=== PATIENT | male | born 1995 | race Caucasian/White ===

== ENCOUNTER 2016-11-12 14:51 | Emergency (ER) | payer OTHER ==
[2016-11-12 14:57] VITALS: BP 141/86
[2016-11-12] MEDS ORDERED: Ibuprofen TAB* 600 MG PO ONE (15:11)
--- NOTE | 2016-11-12 15:47 | ED ---
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 Denies head injury, LOC. Medical staff at the event placed pt in a splint. Denies numbness, tingling, weakness as well as ZENDEJAS, visual change, nausea/vomiting, tinnitus, oral/dental pain, neck pain. Ice and rest have helped sx but also agrees to take an NSAID. Ate almost directly before injury. No previous injury to this knee however he has had 2 Rt knee surgeries in the past. - History of Current Complaint Hx Obtained From: Patient, Family/Partner Alliance Manager - mom, dad Pain Intensity: 3 <Christiane Bianchi - Last Filed: 11/15/16 19:47> <Brittany Thornton - Last Filed: 11/16/16 08:48> - History of Current Complaint Chief Complaint: EDExtremityLower Stated Complaint: KNEE INJURY Time Seen by Provider: 11/12/16 14:57 - Allergies/Home Medications Allergies/Adverse Reactions: Allergies Allergy/AdvReac Type Severity Reaction Status Date / Time No Known Allergies Allergy Verified 11/12/16 15:59 PMH/Surg Hx/FS Hx/Imm Hx Previously Healthy: Yes Endocrine/Hematology History: Denies: Hx Anticoagulant Therapy, Hx Blood Disorders Respiratory History: Denies: Hx Asthma Musculoskeletal History: Reports: Other Musculoskeletal History - Surgical History Surgery Procedure, Year, and Place: Rt knee surgery x 2 Infectious Disease History: No Infectious Disease History: Denies: Traveled Outside the [place] in Last 30 Days - Family History Known Family History: Positive: None - Social History Occupation: Student Lives: With Family - roommate <Christiane Bianchi - Last Filed: 11/15/16 19:47> Review of Systems Negative: Fatigue Eyes: Negative ENT: Negative Negative: Chest Pain Negative: Shortness Of Breath Gastrointestinal: Negative Positive: no symptoms reported Musculoskeletal: Other - see HPI Negative: Bruising Neurological: Negative Psychological: Normal All Other Systems Reviewed And Are Negative: Yes <Christiane Bianchi - Last Filed: 11/15/16 19:47> Physical Exam Triage Information Reviewed: Yes Vital Signs On Initial Exam: Initial Vitals Temp Pulse Resp BP Pulse Ox 98.8 F 84 18 141/86 100 11/12/16 14:54 11/12/16 14:54 11/12/16 14:54 11/12/16 14:54 11/12/16 14:54 Vital Signs Reviewed: Yes Appearance: Positive: Well-Appearing, No Pain Distress, Well-Nourished Skin: Positive: Warm, Dry - no erythema, no ecchymosis over affected area Head/Face: Positive: Normal Head/Face Inspection - NTTP, no battlesign, no racoon sign Eyes: Positive: Normal, EOMI, EDMUND - no photophobia, Conjunctiva Clear ENT: Positive: Hearing grossly normal, Pharynx normal - mucosa moist Dental: Negative: Dental Fracture @ Neck: Positive: Supple, Nontender Respiratory/Lung Sounds: Positive: Clear to Auscultation, Breath Sounds Present. Negative: Subcutaneous Emphysema, Tracheal Deviation Cardiovascular: Positive: Normal, RRR, Pulses are Symmetrical in both Upper and Lower Extremities Abdomen Description: Positive: Nontender, Soft Musculoskeletal: Positive: Pain @ - Rt knee w/ raiza edema - anterior knee w/ bogginess - patella mobile, NTTP, popliteal fossa NTTP; pain w/ 90degrees of flexion - can extend w/o difficulty (limited anterior/posterior drawer test); (- ) Nargis's, equivocal varus/valgus stress; (-) Gerhard Neurological: Positive: Normal, Sensory/Motor Intact, Alert, Oriented to Person Place, Time, CN Intact II-III Psychiatric: Positive: Normal <Christiane Bianchi - Last Filed: 11/15/16 19:47> Vital Signs On Initial Exam: Initial Vitals Temp Pulse Resp BP Pulse Ox 98.8 F 84 18 141/86 100 11/12/16 14:54 11/12/16 14:54 11/12/16 14:54 11/12/16 14:54 11/12/16 14:54 <Brittany Thornton - Last Filed: 11/16/16 08:48> Diagnostics - Vital Signs Vital Signs Temp Pulse Resp BP Pulse Ox 11/12/16 14:54 98.8 F 84 18 141/86 100 <Christiane Bianchi - Last Filed: 11/15/16 19:47> - Vital Signs Vital Signs Temp Pulse Resp BP Pulse Ox 11/12/16 14:54 98.8 F 84 18 141/86 100 <Brittany Thornton - Last Filed: 11/16/16 08:48> Lower Extremity Course/Dx <Christiane Bianchi - Last Filed: 11/15/16 19:47> <Brittany Thornton - Last Filed: 11/16/16 08:48> - Diagnoses Provider Diagnoses: KNEE SPRAIN Discharge <Christiane Bianchi - Last Filed: 11/15/16 19:47> <Brittany Thornton - Last Filed: 11/16/16 08:48> - Discharge Plan Condition: Stable Disposition: HOME Patient Education Materials: Knee Sprain (ED), Crutch Instructions (ED), Knee Immobilizer (ED) Forms: *Physical Education Release Referrals: ASHLEY Smith [Primary Care Provider] - Sneha Lewis MD [Medical Doctor] - Additional Instructions: Rest, ice, compress w/ immobilizer, elevate Ibuprofen 600mg every 6 hours with food Wear immobilizer until cleared by orthopedic provider - you may also use crutches to assist with weight bearing and balance Follow-up with orthopedist this week - call Monday to schedule an appointment *If you develop numbness, weakness, coolness or worsening of pain, return to ED Attestations User Type: Provider - I was available for consult. This patient was seen by the advanced practice provider. The patient was not presented to, seen by, or examined by me. <Brittany Thornton - Last Filed: 11/16/16 08:48>
--- NOTE | 2016-11-12 15:49 | RAD ---
HISTORY: Left knee injury while skiing COMPARISONS: None VIEWS: 4, Frontal, lateral, axial, and oblique views of the left knee FINDINGS: BONE DENSITY: Normal. BONES: There is no displaced fracture. JOINTS: There is no arthropathy. There is no suprapatellar joint effusion or lipohemarthrosis. ALIGNMENT: There is no dislocation. SOFT TISSUES: Unremarkable. OTHER FINDINGS: None. IMPRESSION: NO ACUTE OSSEOUS INJURY. IF SYMPTOMS PERSIST, RECOMMEND REPEAT IMAGING.
== END 2016-11-12 16:40 | disposition home or self-care (01) ==
LOC: ED 14:51
DX: S83.92XA Sprain of unspecified site of left knee, initial encounter (principal); M25.562 Pain in left knee; W19.XXXA Unspecified fall, initial encounter; Y93.9 Activity, unspecified; Y92.9 Unspecified place or not applicable
CPT/HCPCS: 99282; A9270-GY